=== PATIENT | female | born 1940 | race Caucasian/White ===

== ENCOUNTER 2023-09-06 04:58 | Observation (INO) ==
--- NOTE | 2023-08-14 13:25 | PAT Medication Instructions ---
Medication Instructions Date of Service August 14, 2023 Home Medications acetaminophen 325 mg tablet (Tylenol) 650 mg PO QID PRN aspirin 81 mg tablet,delayed release 81 mg PO QAM ibuprofen 200 mg tablet (Advil) 400 mg PO BID PRN multivitamin 1 tab PO QAM omeprazole 20 mg capsule,delayed release 20 mg PO QAM rosuvastatin 10 mg tablet 10 mg PO QPM triamterene 37.5 mg-hydrochlorothiazide 25 mg tablet 0.5 tab PO QAM ASK your surgeon for instructions ibuprofen 200 mg tablet (Advil) 400 mg PO BID PRN ASK your prescriber and surgeon aspirin 81 mg tablet,delayed release 81 mg PO QAM DO NOT take the morning of surgery multivitamin 1 tab PO QAM triamterene 37.5 mg-hydrochlorothiazide 25 mg tablet 0.5 tab PO QAM Take morning of surgery With a small sip of water, OTHERWISE NOTHING TO EAT OR DRINK AFTER MIDNIGHT: acetaminophen 325 mg tablet (Tylenol) 650 mg PO QID PRN(if needed) omeprazole 20 mg capsule,delayed release 20 mg PO QAM Take evening before surgery acetaminophen 325 mg tablet (Tylenol) 650 mg PO QID PRN(if needed) rosuvastatin 10 mg tablet 10 mg PO QPM Other Notes If you have any questions please call us at [phone] or [phone] or [phone] or [phone]
--- NOTE | 2023-08-21 14:27 | Anesthesiology Consultation ---
Date of Service August 21, 2023 Assessment & Plan (1) Encounter for pre-operative examination: - Case discussed with Dr. Flanagan who advised patient does not require further evaluation to his standpoint prior to surgery and is acceptable to proceed. - Patient contacted office relaying that surgeon who did lumbar surgery advised against neuraxial anesthesia - Outpatient joint assessment: Patient is currently scheduled for inpatient pathway. If re-evaluated and patient/surgeon requests outpatient pathway, patient is not recommended candidate for outpatient joint program from anesthesia standpoint. Chart Review Chart Review: Acceptable Risk for Surgery and Patient seen in Pre Admission Testing Teaching & Discussion Pre-Anesthesia Teaching/Discussion Notes: Instructed NPO after midnight before surgery, except medications with 15 cc of water. Medication instructions provided according to the PAT guidelines. History Surgery Operation Date: 09/06/23 07:00 Proposed Procedures p Left Total Knee Arthroplasty - Mode Landon, Height/Weight Height: 5 ft 6 in Weight: 63.7 kg Allergies Allergy/AdvReac Type Severity Reaction Status Date / Time morphine Allergy Severe headache, Verified 08/06/23 09:03 n/v Medications Home Medications Medication Instructions Recorded Confirmed Last Taken acetaminophen 325 mg tablet 650 mg PO QID PRN Pain 08/06/23 08/06/23 Unknown (Tylenol) aspirin 81 mg tablet,delayed 81 mg PO QAM 08/06/23 08/06/23 Unknown release ibuprofen 200 mg tablet (Advil) 400 mg PO BID PRN Pain 08/06/23 08/06/23 Unknown multivitamin 1 tab PO QAM 08/06/23 08/06/23 Unknown omeprazole 20 mg capsule,delayed 20 mg PO QAM 08/06/23 08/06/23 Unknown release rosuvastatin 10 mg tablet 10 mg PO QPM 08/06/23 08/06/23 Unknown triamterene 37.5 0.5 tab PO QAM 08/06/23 08/06/23 Unknown mg-hydrochlorothiazide 25 mg tablet Past Medical History Medical History (Updated 08/21/23 @ 14:47 by Juana Lobo PA-C) Chronic back pain stable per pt-denies acute change or worsening CKD (chronic kidney disease) stage 3, GFR 30-59 ml/min Degenerative disc disease GERD (gastroesophageal reflux disease) controlled, stable per pt Hearing loss chronic History of blood transfusion hunter-operatively 2021 for lumbar surgery History of COVID-16 Aug 2022: sore throat, cough, headache - no hospitalization. no current issues. History of scoliosis Hx of colonic polyps Hyperlipidemia Hypertension controlled, stable per pt Prediabetes Patient denies h/o stroke, seizures, heart attack, heart failure, blood clots/DVTs or blood transfusions. Exercise / Class Metabolic Activity III < 4 Walking/Shop/Light housework (denies chest discomfort or shortness of breath with 1 FOS) Past Family History Family History Other No family history of adverse response to anesthesia Past Surgical History Surgical History History of bowel resection r/t large colon polyp. History of cataract surgery bilateral History of colonoscopy History of dilatation and curettage S/P cervical spinal fusion C6/C7 fusion. Full ROM. S/P lumbar spinal fusion S/P LILLI-BSO Past Anesthesia History No Hx of Anesthesia Complications and No Family Hx of Anesthesia Complications History of PONV No Hx of PONV and No Hx of Motion Sickness Social History Smoking Status: Never smoker Do You Dip or Chew Tobacco: No Hx Alcohol Use: Yes alcohol intake frequency: holidays/special occasions only Hx Substance Use: No substance use type: does not use Review of Systems Patient denies chest pain, shortness of breath, dyspnea on exertion, snoring, witnessed apneas, fever, chills, cough, wheezing, or palpitations. Physical Exam Vital Signs Vitals BP 149/83 P 84 TEMP 97.7 SP02 95% on RA RESP 17 Physical Patient resting comfortably in chair in no acute distress, alert and oriented, responding appropriately throughout visit Full cervical extension range of motion without pain TMD 3.5 finger breadths Mallampati Score 2 Dentition: several caps and crowns; denies chipped or loose teeth, implants or bridges Lungs: normal respiratory effort. Good air movement, clear throughout to au scultation, no adventitious breath sounds Cardiac: regular rate and rhythm, no murmurs noted Carotid arteries: negative bruit bilat Lab Results Anesthesia Preop Results Results Anesthesia Widget: WBC 5.06 K/ul (4.8-10.8) 08/21/23 Hgb 12.7 g/dl (12.0-16.0) 08/21/23 Hct 38.1 % (37.0-47.0) 08/21/23 Plt 208 K/uL (130-400) 08/21/23 Na 136 mmol/L (136-145) 08/21/23 K 3.7 mmol/L (3.5-5.1) 08/21/23 Cl 99 mmol/L (98-107) 08/21/23 CO2 30 mmol/L (21-32) 08/21/23 BUN 19 mg/dl (6-23) 08/21/23 Creat 0.86 mg/dl (0.6-1.2) 08/21/23 Glucose Level 102 mg/dl (70-99(Fasting)) H 08/21/23 PT 11.2 Seconds (9.0-12.0) 08/21/23 PTT 29 Seconds (21-31) 08/21/23 INR 1.0 (0.9-1.1) 08/21/23 Blood Type O Positive 08/21/23 Antibody Screen NEGATIVE 08/21/23 Testing Electrocardiogram Date: 08/21/23 NSR, rate [address] and T wave abnormality Chest X-Ray Date: 08/21/23 No acute chest disease.
[2023-09-06] MEDS: LR 60ML/HR IV SCH (05:29)
[2023-09-06] MEDS: FAMOTIDINE 20 MG TAB PO SCH (05:39)
[2023-09-06] MEDS: ACETAMINOPHEN 500 MG TAB PO SCH ×2 (05:39→14:40)
[2023-09-06] MEDS: GABAPENTIN 300 MG CAP PO SCH (05:39)
[2023-09-06] MEDS: LR 500ML BOLUS, THEN 15ML/HR IV SCH (05:40)
[2023-09-06] MEDS: dexAMETHasone**PF** 10 MG/ML VIAL IV SCH (05:40)
[2023-09-06] MEDS ORDERED: BUPIVACAINE 0.5 % 5 MG/1 ML PF 10ML VIAL ONE (06:16)
[2023-09-06] MEDS ORDERED: ROPIVACAINE 0.5% 5 MG/ML 30 ML VIAL ONE (06:17)
--- NOTE | 2023-09-06 06:24 | History & Physical Bridge Note ---
Date of Service September 06, 2023 History & Physical Bridge Note I have examined the patient, reviewed the History & Physical and in the interval since the performance of the History & Physical I have noted the following changes of clinical significance: no changes noted
[2023-09-06] MEDS ORDERED: fentaNYL citrate PF 100 MCG/2 ML VIAL ONE ×2 (06:36→07:18)
[2023-09-06] MEDS ORDERED: ePHEDrine sulfate 50 MG/ML AMP IV PRN (06:36)
[2023-09-06] MEDS ORDERED: ATROPINE SULFATE 0.1 MG/ML 10ML SYR IV PRN (06:36)
[2023-09-06] MEDS ORDERED: ONDANSETRON INJ 2 MG/ML 2 ML VIAL IV PRN (06:36)
[2023-09-06] MEDS ORDERED: ONDANSETRON INJ 2 MG/ML 2 ML VIAL ONE (06:36)
[2023-09-06] MEDS: TRANEXAMIC ACID 1,000 MG **IV Pre-op IV SCH (06:46)
[2023-09-06] MEDS: ceFAZolin 2000MG 2,000 MG/15 ML SYR IV SCH ×2 (06:58→14:41)
[2023-09-06] MEDS ORDERED: PROPOFOL IV EMULSION 10 MG/ML 20 ML VIAL IV ONE (07:25)
[2023-09-06] MEDS ORDERED: LABETALOL HCL IV 5 MG/ML 20ML IV ONE (07:33)
[2023-09-06] MEDS: ROPIV 0.5% 246mg, Ketorolac 30mg, EPINEPHrine 0.5mg in NSS INFIL SCH (07:42)
--- NOTE | 2023-09-06 07:56 | Operative Report ---
PG Post Operative Report Pre & Post Diagnosis Operation Date: 09/06/23 07:00 Pre-Op Diagnosis: DJD Knee Left Post-Op Diagnosis: DJD Knee Left I identified the patient and participated in the time-out.: Yes Procedure Operation Date: 09/06/23 07:00 Actual Procedures p Left Total Knee Arthroplasty(Left) - Mode Landon DO Surgeon Mode Landon DO [place] Steward Mode Valenzuela PA-C Estimated Blood Loss 30 Findings Consistent with Post-Op Diagnosis Specimens Left femoral tibial bone Description of Procedure Implants used: I used a Doug Persona total knee arthroplasty system with a size 8 standard femur, E tibia, 31 oval patella, and a size 13 medial congruent polyethylene bearing. All components were cemented in place with Biomet cement. Kenzie [facility] for the above procedure. She was seen in the preoperative holding area and the operative extremity was identified and signed. She was given a preoperative antibiotic, TXA, and an adductor nerve block. She was taken back to the operating room and laid on the table in supine position. She was given general anesthesia. The operative knee was then prepped and draped in sterile fashion. A timeout was done, and the patient and the operative extremity was properly identified. A midline incision was made directly over the patella. Dissection was taken down to the extensor mechanism. A subvastus arthrotomy was used. The medial retinaculum was released and the fat pad was mostly excised. The knee was flexed and the ACL, PCL, and meniscus were removed. A drill was sent down the center of the femoral canal followed by an intramedullary giancarlo. Off that giancarlo a distal femoral cutting block was placed. 9 mm was resected off the distal femur at 5 of valgus. A posterior referencing AP sizing guide was then placed on the distal femur. The femur measured to be a size 8. 2 drill holes were placed in 3 of external rotation. A 4-in-1 cutting block was then impacted into place. Anterior, posterior, and chamfer cuts were then made. The proximal tibia was then exposed. An external tibial alignment guide was placed. A tibial cut guide was then anchored in place and the proximal tibia was then resected. The posterior aspect of the knee was then opened up and any additional meniscus fragments and osteophytes were removed. The tibia measured to be a size E. The tibial plate was then placed in the appropriate rotation and the tibia was drilled and punched. Trial components were then placed. I used a size 13 medial congruent polyethylene insert. The knee was brought through a full range of motion and felt to be stable. The peg holes for the femoral component were then drilled. The patella was then everted and 9 mm was resected off the posterior aspect of the patella. The patella measured to be a size 31 oval. 3 peg holes were then drilled. A trial patella was placed. The knee was once again brought through a full range of motion and felt to be stable. Trial components were then removed. The surrounding soft tissues were injected with 100 cc of an orthopedic pain control cocktail. All components were then cemented into place with Biomet cement. The final polyethylene insert was then snapped into place. Once cement was dry the tourniquet was deflated. Hemostasis was obtained. A dilute betadyne lavage was then done for 3 minutes. The joint was then irrigated with normal saline solution. The subvastus arthrotomy was then closed with #1 Vicryl suture. The skin was closed with 2-0 Vicryl, 3-0V lock suture, and maximo. A soft compressive dressing was placed. She was then transferred to a hospital bed and taken to the postanesthesia care unit in stable condition. She tolerated the procedure well. Mode Valenzuela PA-C, was present for the entire procedure. He was critical for patient positioning, prepping, draping, retraction exposure, wound closure and application of sterile dressing. I attest to the content of the Intraoperative Record and any orders documented therein. Any exceptions are noted below.
[2023-09-06] MEDS: fentaNYL citrate PF 100 MCG/2 ML VIAL IV PRN (08:23)
--- OUTSIDE RECORDS SUMMARY | 2023-09-06 08:25 | External Medical Summary | Summary of Care ---
Author Name Unknown Organization [facility] Address [address] [place] [address] Care Team Providers Care Test Engine Operator Name Role Phone Marly Pollack PA-C Primary Care Provider Reason for Visit * Reason Onset Date Comments Other 08/22/2023 Encounter Details Date Type Department Care Team (Late st Contact Info) Description 08/22/2023 Telephone Orthopaedics [facility] [address] [place] [address] [place] [phone] Familia Gibson MD [address] [place] [address] [place] [address] Other Allergies Active Allergy Reactions Criticality Noted Date Comments Fentanyl Nausea/vomiting 09/07/2019 Lidocaine Low 07/19/2023 Headache Atorvastatin 04/21/2018 Muscle aches Morphine Sulfate Nausea/vomiting 04/21/2018 Simvastatin Muscle pain documented as of this encounter (statuses as of 08/22/2023) Medications Medication Sig Dispensed Refills Start Date End Date Status Cholecalciferol (VITAMIN D) 1000 units Tablet Take 1 Tablet by mouth in the morning. 0 Active pyridOXINE (VITAMIN B-6) 100 MG Tablet Take 1 Tablet by mouth in the morning. 0 Active CYANOCOBALAMIN (VITAMIN B-12) 100 MCG Tablet Take 1 Tablet by mouth in the morning. 0 Active Aspirin 81 MG Tablet Take 1 Tablet by mouth in the morning. 0 Active Co Q10 100 MG Oral Capsule Take by mouth . 0 Active Docusate Sodium 100 MG Oral Capsule Take 1 Capsule by mouth every other day. 0 Active Omeprazole 20 MG Oral Capsule Delayed Release (PriLOSEC)Indications: Gastroesophageal reflux disease without esophagitis TAKE ONE CAPSULE BY MOUTH EVERY DAY BEFORE A MEAL 90 Capsule 3 08/15/2022 Active Triamterene-HCTZ 37.5-25 MG Oral Tablet ((Maxzide-25))Indicati ons:Essential hypertension Take 0.5 Tablets by mouth in the morning. 45 Tablet 3 08/15/2022 Active Rosuvastatin Calcium 10 MG Oral Tablet (Crestor)Indications:M ixed hyperlipidemia Take 1 Tablet by mouth in the morning. 90 Tablet 3 08/15/2022 Active traMADol HCl 50 MG Oral TabletIndications:Hist ory of lumbar fusion Take 1 Tablet by mouth every 8 hours as needed for Pain, Moderate or Pain, Severe. 30 Tablet 0 07/11/2023 Active documented as of this encounter (statuses as of 08/22/2023) Active Problems Problem Noted Date Diagnosed Date H/O spinal fusion 03/06/2022 Chronic kidney disease, stage 3a 08/08/2020 Overview: Per CKD protocol Prediabetes 09/08/2018 Overview: Per Prediabetes protocol #1 Essential hypertension Mixed hyperlipidemia GERD (gastroesophageal reflux disease) Osteoarthritis documented as of this encounter (statuses as of 08/22/2023) Resolved Problems Problem Noted Date Diagnosed Date Resolved Date Glucose intolerance (impaire d glucose tolerance) 08/13/2018 03/13/2021 Overview: A1c 5.8 documented as of this encounter (statuses as of 08/22/2023) Immunizations Name Administration Dates Next Due COVID-19 mRNA, LNP-s, No Pre serve, 2-Dose Series (Moderna) 09/26/2020,08/22/2020 COVID-19, mRNA, LNP-s, PF, B ooster, 100mcg/0.5mg (Moderna) 06/07/2021 Pneumococcal Conjugate Vacc, 13 Valent (Prevnar) 08/08/2016 Pneumococcal Polysaccharide PPV23 (Pneumovax) 08/13/2018 Season Influenza, Quad, PF, Adjuvanted, 65+ Yrs, IM (FLUAD) 05/17/2020 Seasonal Influenza Virus Vac cine, Unspecified Formulation 04/30/2017 Seasonal Influenza, Quadriva lent Hd (Fluzone Hd) 05/21/2023,05/10/2022,05/12/2021 Seasonal Influenza, Trivalen t, Adjuvanted, 65+ yrs 07/06/2019,06/02/2018 TDAP (age 11 and older)(Adacel) 09/03/2014 Zoster Vaccine Recombinant (Shingrix) 07/25/2020 ,04/05/2020 documented as of this encounter Social History Tobacco Use Types Packs/Day Years Used Date Smoking Tobacco: Never Smokeless Tobacco: Never Alcohol Use Standard Drinks/Week Comments Yes 0 (1 standard drink = 0.6 oz pur e alcohol) social PHQ-2 Answer Date Recorded PHQ Adult Total Score 0 02/19/2023 Hunger Vital Sign Answer Date Recorded Within the past 12 months, y ou worried that your food would run out before you got the money to buy more. Never true 02/20/20 23 Within the past 12 months, t he food you bought just didn't last and you didn't have money to get more. Never true 02/19/2023 Sex and Gender Information Value Date Recorded Sex Assigned at Female 11/09/2021 9:18 AM EDT Gender Identity Female 11/09/2021 9:18 AM EDT Sexual Orientation Straight 11/09/2021 9: 18 AM EDT Job Start Date Occupation Industry Not on file Not on file Not on file documented as of this encounter Miscellaneous Notes * Telephone Encounter - Rahel Page LPN - 08/22/2023 10:41 AM EST Pt called questioning if she would be able to have a spinal block anesthesia for her upcoming TKR since she had a T12-S1 PSF done in 2021. I spoke with Dr. Gibson and he advised against them using a spinal block. I made pt aware. documented in this encounter Plan of Treatment Upcoming Encounters Date Type Department Care Team (Late st Contact Info) Description 09/20/2023 9:40 AM EST [facility] [address] [place] [phone] Mars Ruiz II, PA-C [address] [place] [address] [place] [phone] 11/14/2023 9:40 AM EDT Office Visit Orthopaedics, [place] [facility] [address] [place] [phone] Familia Gibson MD [address] [place] [address] [place] [address] 02/26/2024 10:40 AM EDT Office Visit Family Practice, [facility] [address] [place] [address] Marly Pollack PA-C [address] [place] [address] Health Maintenance Due Date Last Done Comments COLONOSCOPY-EVERY 5 YRS AGES 18-100 12/03/2022 12/03/2017 COVID-19 Vaccine ( season) 2023 06/07/2021, 09/26/2020, 08/22/2020 GFR 11/26/2023 05/28/2023, 12/27, 08/03/2022, Additional history exists Albumin/Creatinine Ratio 01/12/2024 01/11/2023, 02/26 HbA1c 01/12/2024 01/11/2023, 02/27, 03/01/2021, Additional history exists Depression Screening 02/20/2024 02/19/2023 CKD HGB USE SMARTSET 71031 05/28/202405/28, 05/28/2023, 01/11/2023, Additional history exists CKD PHOS USE SMARTSET 42391 05/28/2024 05/28/2023, 0 03/19/2022 DTaP,Tdap,and Td Vaccines (2 - Td or Tdap) 09/03/2024 09/03/2014 DXA Scan 03/14/2027 03/14/2020, 09/10/2016 Pneumococcal Vaccine: 65+ Years Completed 08/13/2018, 08/08/2016 Zoster Vaccines Completed 07/25/2020, 04/05/2020 Influenza Vaccine (FLU shot) Completed , 05/10/2022, 05/12/2021, Additional history exists GARDASIL-HPV IMMUNIZATION SERIES Aged Out No longer eligible based on patient's age to complete this topic Hepatitis B Aged Out No longer eligi ble based on patient's age to complete this topic MENINGOCOCCAL (MENACTRA/MENVEO) Aged Out No longer eligible based on patient's age to complete this topic documented as of this encounter Medical Devices Not on filedocumented as of this encounter Care Teams Test Engine Operator Relationship Specialty Start Date End Date Marly Pollack PA-C [address] [place] [address] PCP - General Physician Stapler Hand 08/13/22 documented as of this encounter
[2023-09-06] MEDS ORDERED: bisacodyL 10 MG SUPP PR PRN (09:46)
[2023-09-06] MEDS ORDERED: METOCLOPRAMIDE HCL INJ 5 MG/ML 2 ML VIAL IV PRN (09:46)
[2023-09-06] MEDS ORDERED: MAGNESIUM HYDROXIDE SUSP 30 ML UDC PO PRN (09:46)
[2023-09-06] MEDS ORDERED: HYDROmorphone INJ 0.5 MG/0.5 ML SYR IV PRN (09:46)
[2023-09-06] MEDS ORDERED: NALOXONE HCL 0.4 MG/1 ML VIAL/CARP IV PRN (09:46)
--- NOTE | 2023-09-06 10:42 | XRay Report ---
XR knee LT 1 or 2V routine CLINICAL HISTORY: Postoperative evaluation. COMPARISON: Left knee radiographs March 20, 2023. FINDINGS: Alignment of the total left knee arthroplasty is anatomic. There is no periprosthetic frac ture or unexpected radiopaque foreign body. There are skin maximo. IMPRESSION: Expected findings following total left knee arthroplasty. ACT 112: Negative or not required by law. Electronically signed by: Atilio Weaver M.D. 09/06/2023 10:41 AM
[2023-09-06] MEDS: PANTOprazole 40 MG TAB PO SCH (10:54)
[2023-09-06] MEDS: ASPIRIN 81 MG ECTAB PO SCH (10:54)
[2023-09-06] MEDS: DOCUSATE SODIUM 100 MG CAP PO SCH (10:54)
[2023-09-06] MEDS: MULTIVITAMIN TAB PO SCH (10:54)
[2023-09-06] MEDS: TRIAMTERENE/HCTZ 37.5/25MG TAB PO SCH (10:55)
[2023-09-06] MEDS: oxyCODONE HCL IR 5 MG TAB (IMMEDIATE RELEASE) PO PRN (12:32)
[2023-09-06] MEDS: ORTHO JOINT ANESTHETIC ONE (13:43)
[2023-09-06] MEDS: TRANEXAMIC ACID 1,000 MG **IV Intra-op IV SCH (13:44)
[2023-09-06] MEDS: SODIUM CHLORIDE 0.9% 1,000 ML IV SCH (14:40)
[2023-09-06] MEDS: ONDANSETRON INJ 2 MG/ML 2 ML VIAL IV PRN (14:40)
[2023-09-06] MEDS: ROSUVASTATIN CALCIUM 10 MG TAB PO SCH (20:10)
[2023-09-06] MEDS: SENNA 8.6 MG TAB PO SCH (20:11)
--- NOTE | 2023-09-07 06:21 | Orthopedic Progress Note ---
Date of Service September 07, 2023 Assessment & Plan (1) Status post left knee replacement: Overall she is doing very well. She is not having much pain in the left knee. She will be seen by physical therapy today for ambulation and range of motion exercises. She is on aspirin for DVT prophylaxis. She can be discharged home later today. She will follow-up with orthopedics in 2 weeks. Kati Espino was seen and examined at bedside this morning. Overall she is doing very well. She is not having much pain in the left knee. She has been up and ambulating in the hallways. She has no complaints.. Review of Systems All systems reviewed & are unremarkable except as noted in HPI & below. Physical Exam On physical examination of the left knee, the dressing is clean and dry. Her leg is out full extension. She has active dorsiflexion plantarflexion of her left ankle.. Results & Data Results & Data Laboratory Results . Diagnostic Findings Postoperative x-rays of the left knee show the prosthesis to be in anatomic alignment without any evidence of fracture, dislocation, or loosening.. PG Care Time/CCT Total # of Minutes Spent Total Time Spent with Patient: Total time spent is greater than 50% in coordination of care (as documented) at patient's floor/unit and/or counseling patient: Coding Level of Care Code 45177 Post Operative Follow-Up Diagnoses Status post left knee replacement Z96.652
--- NOTE | 2023-09-07 06:22 | Discharge Summary ---
Date of Service September 07, 2023 Principal Diagnosis Same as "Discharge Diagnosis" noted below under Discharge Instructions. Discharge Exam On physical examination of the left knee, the dressing is clean and dry. Her leg is out full extension. She has active dorsiflexion plantarflexion of her left ankle.. Discharge Data Procedures Performed Operation Date: 09/06/23 07:00 Actual Procedures p Left Total Knee Arthroplasty(Left) - Mode Landon DO Ordered Studies 09/06/23 05:00 US - OR guided needle placemen Routine Hospital Course (1) Status post left knee replacement: On August Kenzie arrived at [facility] and underwent a left knee replacement without complication. She had a general anesthetic. Postoperatively she was started on aspirin for DVT prophylaxis and transferred to the general orthopedic floors. Her hospital course was uneventful. On postop day #1, her vital signs were stable and her pain was well-controlled. She was able to participate well with physical therapy doing ambulation and range of motion exercises. She was then discharged home. She will follow-up with orthopedics in 2 weeks. PG Care Time/CCT Total # of Minutes Spent Total Time Spent with Patient: Total time spent is greater than 50% in coordination of care (as documented) at patient's floor/unit and/or counseling patient: Discharge Plan Discharge Items Patient Disposition: Home - Self-Care Reason For Visit: DJD Knee Left Discharge Diagnosis: Left knee replacement Activity: Per Instructions section Non-emergency contact: Surgeon Call non-emergency contact if: your wound has increased redness and your wound has increased drainage Follow-up/Referrals: Marly Pollack PA-C [Primary Care Provider] - Diet: Regular Addtl Attending Provider Instructions: Activity and Therapy Recommendations: * If you are using [facility] then therapy will be provided at your home until they feel you have accomplished all of your goals. * If you are using [facility] then Physical Therapy will be provided until they feel you are ready to start Outpatient Physical Therapy. * If you are not using home therapy then Outpatient Physical Therapy should start about 3-5 days from your day of surgery. Therapy will last about 6-10 weeks * It is important not to put a pillow under your knee when you are relaxing or sleeping. It is just as important to make sure you are getting your knee perfectly straight as it is to regain your knee bend. * You were shown a series of exercises in the hospital. Do these exercises three times each day including the exercises you were shown in physical therapy. * Get up and walk several times each day. For the first four weeks, try not to stand or walk for more than one hour at a time. If you do stand or walk for more than one hour, you will not hurt anything, but your leg will likely swell. * As you feel comfortable, you may change from the walker or crutches to a cane and then to independent walking. Medications: * Narcotic You will likely be sent home from the hospital with a prescription for the narcotic pain medication that worked best throughout your stay. * Cefadroxil -take the antibiotic twice a day for 10 days to help prevent infection. * Aspirin Most patients will be required to take Aspirin 81mg twice a day for 6 weeks after surgery. This is obtained [id number] and a prescription is not necessary. * Other medications may be prescribed for specific circumstances. If you have any questions, please call the office at . * Resume previous home medications unless otherwise instructed TEDs/Elastic Stockings: The white elastic stockings help limit swelling and prevent blood clots from forming in your legs.~ The more you wear them, the more they work. Wear them for six weeks. Dressing Care: The dressing can be changed after physical therapy on postop day #1. Daily dry dressing changes for a few days, especially if the incision is still draining some. If the incision is not draining then you may leave the maximo open to air. If there is a little bit of drainage or if the maximo are getting stuck on your clothing then cover the incision with a dry dressing. The maximo will be removed at your 2 week follow-up appointment. Showering: You may shower 5 days from the day of surgery as long as the incision is no longer draining. You may shower with the maximo exposed. Let soapy water run over the maximo and pat them dry. Do not scrub or soak the incision. Things To Watch For: * Drainage from the incision site that occurs more than one week after your surgery. * Increased redness at the incision site. * Fever above 102 degrees Fahrenheit. * Unusual chest pain or shortness of breath. * Call [facility] at with any of the above problems Follow-Up Visit: Follow-up with Dr. Landon's PA (Mode Valenzuela) 2-3 weeks after your day of surgery. He will remove your maximo and answer any questions. If you have any additional questions or concerns, Dr Landon is usually in the office at the same time and will be available An appointment was probably scheduled when you signed-up for surgery in the office. If you have any questions call Office Instructions: More detailed instructions as well as Frequently Asked Questions were provided in a folder by our office when you signed-up for surgery. Please review these instructions when you get home. If you have any further questions or concerns, please feel free to call the office at [phone] Pending Studies at Discharge: No Stand-Alone Forms: My [facility] [employer], Smoking Cessation Medications and DC Order Prescriptions: New oxycodone 5 mg Tablet 5 mg PO Q4H PRN (Reason: pain) Qty: 30 0RF cefadroxil 500 mg capsule 500 mg PO BID 10 Days Qty: 20 0RF Continued triamterene-hydrochlorothiazid [Maxzide-25mg] 37.5-25 mg Tablet 0.5 tab PO QAM omeprazole 20 mg Capsule,Delayed Release(Dr/Ec) 20 mg PO QAM rosuvastatin 10 mg Tablet 10 mg PO QPM multivitamin Tablet 1 tab PO QAM acetaminophen [Tylenol] 325 mg Tablet 650 mg PO QID PRN (Reason: Pain) ibuprofen [Advil] 200 mg Tablet 400 mg PO BID PRN (Reason: Pain) Changed aspirin 81 mg Tablet,Delayed Release (Dr/Ec) 81 mg PO BID 42 Days Qty: 0 0RF Discharge Orders: Discharge Order (Routine); Ordered 09/07/23 Ordered By: Mode Landon Admission Data Admit Date/Time: 09/06/23 08:16 Attending Provider: Mode Landon Admit Provider: Mode Landon Primary Care Provider: Marly Pollack Other Providers: [facility],Home Healthcare
[2023-09-07] MEDS: dexAMETHasone 4 MG TAB PO SCH (08:59)
--- NOTE | 2023-09-09 14:47 | Anesthesiology Progress Note ---
Date of Service September 06, 2023 Anesthesia Post Procedure Pain Intensity Left Knee: Pain Intensity: 2 Transfer of Care Handoff Completed per policy Notes Mental Status: alert / awake / arousable and participated in evaluation Patient Amnestic to Procedure: Yes Nausea / Vomiting: adequately controlled Pain: adequately controlled Airway Patency, RR, SpO2: stable & adequate BP & HR: stable & adequate Hydration State: stable & adequate Anesthetic Complications: no major complications apparent and Pt Satisfied with anesthetic care
== END 2023-09-07 11:57 | disposition home or self-care (01) ==
LOC: ASU 04:58 → 3E 04:58